=== PATIENT | male | born 1990 | race Caucasian/White ===

== ENCOUNTER → 2018-11-13 19:07 | Outpatient (CLI) | payer OTHER, SELFPAY ==
--- NOTE | 2018-11-13 | DI.MRI.S_ITS ---
PROCEDURE: MR KNEE RT WO CON INDICATIONS: RIGHT KNEE PAIN TECHNIQUE: Noncontrast sagittal PD fast spin echo and T2 fast spin echo with fat saturation, sagittal 3-D FLASH with fat saturation; coronal T1 spin echo and PD fast spin echo with fat saturation, and axial PD fast spin echo with fat saturation through the knee. COMPARISON: [facility], MR, KNEE WITHOUT CONTRAST, 08/01/2017, 18:30. FINDINGS: Image quality: Excellent. Menisci: Previously seen tear is within the immediate L. and lateral menisci have been repaired. Residual truncation of the free edge of posterior horn lateral meniscus. Cruciate ligaments: The anterior cruciate ligament graft and posterior cruciate ligaments appear intact. Medial structures: The medial collateral ligament appears intact. Visualized portions of the pes anserinus tendons appear normal. No abnormal bursal fluid. Lateral structures: The lateral collateral ligament, long and short heads of the biceps femoris tendon appear intact. The popliteus tendon appears normal. Iliotibial band appears normal. Anterior structures: The quadriceps and patellar tendons appear intact. There is thickening of the patellar tendon, compatible with postsurgical sequelae. Patellar alignment is normal. No femoral trochlear dysplasia or ventral trochlear prominence. No edema in the infrapatellar fat pad. Bones and cartilage: No bone marrow contusions or fractures. Postsurgical sequelae within the mid/inferior patella. Mild diffuse articular cartilage loss overlies the weightbearing aspects of the medial femoral condyle and medial tibial plateau. A moderate focal region of articular cartilage loss overlies the lateral patellar apex measuring roughly 7 mm diameter. Joint space: There is a small knee joint effusion and a small Loza's cyst. Normal appearing synovial plicae are incidentally noted. IMPRESSION: 1. Intact ACL repair. 2. Postsurgical sequelae involving the patellar tendon and menisci. 3. Small knee joint effusion and Loza's cyst. 4. Medial and patellofemoral compartment articular cartilage loss. Dictated by: Edith Brand M.D. on 11/14/2018 at 14:37 Approved by: Edith Brand M.D. on 11/14/2018 at 14:53
== END ==
PROVIDERS: PCP Anesthesiology Pain Medicine; Visit Provider Anesthesiology Pain Medicine
DX: M25.561 Pain in right knee (principal); M71.22 Synovial cyst of popliteal space [Baker], left knee; M25.462 Effusion, left knee
CPT/HCPCS: 73721